=== PATIENT | female | born 1995 | race African-American/Black ===

== ENCOUNTER 2018-04-02 01:01 | Emergency (ER) | payer MEDICAID, OTHER ==
[~2018-04-02] VITALS: Ht 175.3 cm; Wt 75.0 kg
[~2018-04-02 01:01] MED LIST: PREN-88 PO
[2018-04-02] MEDS ORDERED: IBUPROFEN 600MG TABLET PO STA (05:30)
[2018-04-02] MEDS ORDERED: AZITHROMYCIN 500 MG TABLET PO ONE (06:45)
[2018-04-02] MEDS ORDERED: CEFTRIAXONE SODIUM 250 MG/VIAL IM ONE (06:45)
[2018-04-02] MEDS ORDERED: FLUCONAZOLE 150MG TABLET PO ONE (06:45)
[2018-04-02] MEDS ORDERED: IBUPROFEN 800MG TABLET PO ONE (07:00)
[2018-04-02 07:10] LABS: CLARITY URINE CLOUDY (CLEAR); COLOR URINE YELLOW (YELLOW); KETONES URINE TRACE (NEGATIVE); LEUKOCYTE ESTERASE URINE 2+ (NEGATIVE); NITRITE URINE NEGATIVE (NEGATIVE); OCCULT BLOOD URINE NEGATIVE (NEGATIVE); PROTEIN URINE NEGATIVE (NEGATIVE); SPECIFIC GRAVITY URINE 1.027 (1.005-1.030)
[2018-04-02 09:03] VITALS: BP 104/55
== END 2018-04-02 09:15 | disposition home or self-care (01) ==
LOC: ER 01:01
DX: B00.9 Herpesviral infection, unspecified (principal); A59.09 Other urogenital trichomoniasis; N39.0 Urinary tract infection, site not specified; N89.8 Other specified noninflammatory disorders of vagina; Z79.899 Other long term (current) drug therapy
CPT/HCPCS: 81003; 81025; 87077; 87086; 87210; 96372; 99284; J0696

== ENCOUNTER 2018-10-21 04:56 | Inpatient (IN) | payer MEDICAID, OTHER ==
[~2018-10-21] VITALS: Ht 157.5 cm; Wt 88.0 kg
[2018-10-21] MEDS ORDERED: LACTATED RINGERS 1,000 ML IV SCH (04:59)
[2018-10-21] MEDS ORDERED: BUTORPHANOL TARTRATE 2 MG/ML VIAL IV PRN (05:00)
[2018-10-21] MEDS ORDERED: MISOPROSTOL 100MCG TABLET VG SCH (05:00)
[2018-10-21] MEDS ORDERED: LIDOCAINE HCL 1% 20ML VIAL (Pyxis) INJ INFIL SCH (05:00)
[2018-10-21] MEDS ORDERED: DEXT 5%/LR + PITOCIN 20UNITS/L 1,000 ML IV SCH ×2 (05:15→15:30)
[2018-10-21 05:57] LABS: BASOPHILS % 0.2 % (0.0-2.0); EOSINOPHILS % 1.2 % (0.0-5.0); HEMATOCRIT. 30.2 % (36.0-48.0); HEMOGLOBIN. 10.5 g/dL (12.0-16.0); LYMPHOCYTES % 27.4 % (20.0-50.0); MEAN CORPUSCULAR HEMOGLOBIN 32.5 pg (28.0-32.0); MEAN CORPUSCULAR VOLUME 93.9 fL (81.0-99.0); MEAN PLATELET VOLUME 8.4 fl (7.4-10.4); NEUTROPHILS % 64.2 % (40.0-76.0); PLATELET 220 x1000/uL (130-400); RED BLOOD CELL COUNT 3.22 mill/uL (4.2-5.4); RED CELL DISTRIBUTION WIDTH 13.8 % (11.6-14.6)
[2018-10-21] MEDS ORDERED: AMPICILLIN 2,000 MG in SODIUM CHLORIDE 0.9% 100 ML IV SCH ×2 (06:00→10:00)
[2018-10-21 06:02] LABS: CLARITY URINE CLEAR (CLEAR); COLOR URINE YELLOW (YELLOW); KETONES URINE NEGATIVE (NEGATIVE); LEUKOCYTE ESTERASE URINE 2+ (NEGATIVE); NITRITE URINE NEGATIVE (NEGATIVE); OCCULT BLOOD URINE 1+ (NEGATIVE); PH URINE 7.5 (4.5-8.0); PROTEIN URINE NEGATIVE (NEGATIVE); SPECIFIC GRAVITY URINE 1.016 (1.005-1.030); UROBILINOGEN URINE 0.2 E.U./dL (0.2-1.0)
[2018-10-21 06:10] LABS: INR 0.9; PARTIAL THROMBOPLASTIN TIME 26.9 sec (23.4-31.0); PROTHROMBIN TIME 9.5 sec (9.6-11.0)
[2018-10-21 06:11] LABS: *AMPHETAMINES SCREEN URINE NEGATIVE (NEGATIVE); *BARBITURATES SCREEN URINE NEGATIVE (NEGATIVE); *BENZODIAZEPINES SCREEN URINE NEGATIVE (NEGATIVE); *COCAINE SCREEN URINE NEGATIVE (NEGATIVE)
[2018-10-21 06:12] LABS: CANNABINOID URINE SCREEN NEGATIVE (NEGATIVE); METHADONE URINE SCREEN NEGATIVE (NEGATIVE); OPIATES URINE SCREEN NEGATIVE (NEGATIVE); PHENCYCLIDINE URINE SCREEN NEGATIVE (NEGATIVE)
[2018-10-21 08:07] LABS: HEPATITIS B SURFACE ANTIGEN NEGATIVE
[2018-10-21] MEDS ORDERED: ROPIVACAINE HCL/PF EPIDURAL 200 ML EPI SCH (09:15)
[2018-10-21 14:20] VITALS: BP 109/54
[2018-10-21] MEDS: IBUPROFEN 800MG TABLET PO PRN ×2 (15:25→23:53)
[2018-10-21] MEDS ORDERED: DIPHENHYDRAMINE 25MG CAPSULE PO PRN (15:30)
[2018-10-21] MEDS ORDERED: IBUPROFEN 800MG TABLET PO PRN (15:30)
[2018-10-21] MEDS ORDERED: ACETAMINOPHEN WITH CODEINE 300/30MG TABLET PO PRN (15:30)
[2018-10-21] MEDS ORDERED: METHYLERGONOVINE MALEATE 0.2 MG/ML IM PRN (15:30)
[2018-10-21] MEDS ORDERED: RHO(D) IMMUNE GLOBULIN 300 MCG/SYR IM PRN (15:30)
[2018-10-21] MEDS ORDERED: LANOLIN OINT 7GM TUBE TOP PRN (15:30)
[2018-10-21] MEDS ORDERED: IBUPROFEN 400MG TABLET PO PRN (15:30)
[2018-10-21 19:40] VITALS: BP 126/81
[2018-10-21 23:50] VITALS: BP 16/50
[2018-10-22 05:00] VITALS: BP 100/60
[2018-10-22 06:34] LABS: BASOPHILS % 0.2 % (0.0-2.0); EOSINOPHILS % 1.2 % (0.0-5.0); HEMATOCRIT. 26.3 % (36.0-48.0); HEMOGLOBIN. 9.1 g/dL (12.0-16.0); LYMPHOCYTES % 24.4 % (20.0-50.0); MEAN CORPUSCULAR HEMOGLOBIN 32.5 pg (28.0-32.0); MEAN CORPUSCULAR VOLUME 94.2 fL (81.0-99.0); MEAN PLATELET VOLUME 8.4 fl (7.4-10.4); MONOCYTES % 7.6 % (2.0-8.0); NEUTROPHILS % 66.6 % (40.0-76.0); PLATELET 198 x1000/uL (130-400); RED BLOOD CELL COUNT 2.79 mill/uL (4.2-5.4); RED CELL DISTRIBUTION WIDTH 13.7 % (11.6-14.6)
[2018-10-22 07:59] VITALS: BP 120/50
[2018-10-22] MEDS ORDERED: PRENATAL VIT/FE FUMARATE/FA TABLET PO SCH (09:00)
[2018-10-22] MEDS: IBUPROFEN 800MG TABLET PO PRN (09:27)
[2018-10-22 16:07] VITALS: BP 113/81
[2018-10-22 20:00] VITALS: BP 105/59
[2018-10-23 04:00] VITALS: BP_SYST 110; BP_SYST 115; BP_DIAS 60; BP_DIAS 70
[2018-10-23 08:00] VITALS: BP 115/63
== END 2018-10-23 09:30 | disposition home or self-care (01) | DRG 560 ==
LOC: OBSVTOIN 04:56 → 8 EST LDRP 04:56 → 8EST 14:03
PROVIDERS: ADMIT Obstetrics & Gynecology; ATTEND Obstetrics & Gynecology
PROC: 10E0XZZ Delivery of Products of Conception, External Approach (ICD-10-PCS; principal; 2018-10-21)
PROC: 10907ZC Drainage of Amniotic Fluid, Therapeutic from Products of Conception, Via Natural or Artificial Opening (ICD-10-PCS; 2018-10-21)
DX: O77.0 Labor and delivery complicated by meconium in amniotic fluid (principal); O99.03 Anemia complicating the puerperium; Z37.0 Single live birth; Z3A.38 38 weeks gestation of pregnancy; Z83.3 Family history of diabetes mellitus; Z82.3 Family history of stroke; Z82.0 Family history of epilepsy and other diseases of the nervous system
CPT/HCPCS: 36415; 80305; 86592; 86703; 86762; 86850; 86900; 87340; 96365; 96366; 96367; 96375; 99281; G0378; J0290; J0595; J2590; J2795; J7050